=== PATIENT | female | born 1985 | race African-American/Black ===

== ENCOUNTER 2017-09-19 09:41 | Emergency (ER) | payer OTHER ==
--- NOTE | 2017-09-19 09:54 | PDOC ---
History of Present Illness - General Chief Complaint: Injury Stated Complaint: LEFT ANKLE PAIN Time Seen by Provider: 09/19/17 09:44 - History of Present Illness Initial Comments: 09/19/17 09:52 32 F with no PMH presents to ED with L ankle pain. Pt states that yesterday she twisted her ankle inward while going down a step. Denies falling. Denies hearing a pop or crack. Pt was able to ambulate on it immediately afterwards but with some pain. Pt denies any other injury. Has been ambulatory on the foot but states it hurts to bear weight. Pt reports prior fx in the same ankle several years ago. Past History - Past Medical History Allergies/Adverse Reactions: Allergies Allergy/AdvReac Type Severity Reaction Status Date / Time No Known Allergies Allergy Verified 09/19/17 09:43 Home Medications: Ambulatory Orders No Home Medications 0 dose .ROUTE UTDICT 07/05/12 - Suicide/Smoking/Psychosocial Hx Smoking Status: Yes Smoking History: Former smoker Years of Tobacco Use: 5 Number of Cigarettes Smoked Daily: 0 Hx Alcohol Use: No Drug/Substance Use Hx: No Substance Use Type: None Hx Substance Use Treatment: No Review of Systems - Review of Systems Comments:: 09/19/17 09:53 "GENERAL/CONSTITUTIONAL: No fever or chills. No weakness. HEAD, EYES, EARS, NOSE AND THROAT: No change in vision. No ear pain or discharge. No sore throat. CARDIOVASCULAR: No chest pain or shortness of breath. RESPIRATORY: No cough, wheezing, or hemoptysis. GASTROINTESTINAL: No nausea, vomiting, diarrhea or constipation. GENITOURINARY: No dysuria, frequency, or change in urination. MUSCULOSKELETAL: + L ankle swelling and pain. No neck or back pain. SKIN: No rash NEUROLOGIC: No headache, vertigo, loss of consciousness, or change in strength/ sensation. ENDOCRINE: No increased thirst. No abnormal weight change. HEMATOLOGIC/LYMPHATIC: No anemia, easy bleeding, or history of blood clots. ALLERGIC/IMMUNOLOGIC: No hives or skin allergy. " *Physical Exam - Physical Exam Comments: 09/19/17 09:54 "GENERAL: Awake, alert, and fully oriented, in no acute distress HEAD: No signs of trauma EYES: PERRLA, EOMI, sclera anicteric, conjunctiva clear ENT: Auricles normal inspection, hearing grossly normal, nares patent, oropharynx clear without exudates. Moist mucosa NECK: Nontender, no stepoffs, Normal ROM, supple, no lymphadenopathy, JVD, or masses LUNGS: Breath sounds equal, clear to auscultation bilaterally. No wheezes, and no crackles HEART: Regular rate and rhythm, normal S1 and S2, no murmurs, rubs or gallops ABDOMEN: Soft, nontender, normoactive bowel sounds. No guarding, no rebound. No masses EXTREMITIES: + L ankle effusion with mild TTP over lateral malleolus, normal ROM NEUROLOGICAL: Cranial nerves II through XII intact. 5/5 strength and sensation in all extremities, Normal speech, normal gait, normal cerebellar function SKIN: Warm, Dry, normal turgor, no rashes or lesions noted. " ED Treatment Course - RADIOLOGY Radiology Studies Ordered: Category Date Time Status ANKLE-LEFT [RAD] Stat Radiology 09/19/17 09:45 Ordered Medical Decision Making - Medical Decision Making 09/19/17 09:54 32 F with L ankle pain and swelling after twisting it yesterday. Likely ankle sprain - XR to r/o fx 09/19/17 10:42 XR negative Pt is well appearing, with normal vitals. Clinically stable for DC at this time. I discussed the physical exam findings, ancillary test results and final diagnoses with the patient. I answered all of the patient's questions. The patient was satisfied with the care received and felt comfortable with the discharge plan and treatment plan. The patient agrees to follow up with the primary care physician within 24-72 hours. *DC/Admit/Observation/Transfer Diagnosis at time of Disposition: Ankle sprain - Discharge Dispostion Disposition: HOME - Referrals Referrals: Joseph Thakur MD [Staff Physician] - - Patient Instructions Printed Discharge Instructions: DI for Ankle Sprain Additional Instructions: Apply ice and keep your ankle elevated to reduce swelling. Take motrin as needed for pain. Your X ray today did not show any fractures. However, if you continue to have pain and difficulty walking, you may have a torn ligament. Follow up with an orthopedic surgeon within 72 hours to have your ankle re- evaluated if you still have pain. You may need an MRI. Keep your ankle wrapped and avoid bearing weight on it. If you experience worsening pain, swelling, or any other concerning symptoms, return to the ER immediately. - Post Discharge Activity - Attestations Physician Attestion: 09/19/17 10:45 I, Dr. Lowell Barrientos MD, attest that this document has been prepared under my direction and personally reviewed by me in its entirety. I further attest, that it accurately reflects all work, treatment, procedures and medical decision -making performed by me.
[2017-09-19 09:57] VITALS: BP 119/78; PULSE 81; TEMP 98.2; BMI 26.6
== END 2017-09-19 10:51 | disposition home or self-care (01) ==
LOC: FER 09:41
DX: S93.402A Sprain of unspecified ligament of left ankle, initial encounter (principal); W18.39XA Other fall on same level, initial encounter; Y93.89 Activity, other specified; Y92.9 Unspecified place or not applicable; Z87.891 Personal history of nicotine dependence
CPT/HCPCS: 73610-TC-LT-FY; 99282-25

== ENCOUNTER 2021-04-19 07:07 | Emergency (ER) | payer OTHER ==
[2021-04-19 07:18] VITALS: BP 128/79; PULSE 65; TEMP 97.9; BMI 29.2
[2021-04-19] MEDS ORDERED: DIPHTH,PERTUSS(ACELL),TET 0.5 ML DISP.SYRIN IM ONE ×2 (07:25→07:32)
== END 2021-04-19 09:16 | disposition home or self-care (01) ==
LOC: FER 07:07
PROC: 0HQFXZZ Repair Right Hand Skin, External Approach (ICD-10-PCS; principal; 2021-04-19)
PROC: 3E0234Z Introduction of Serum, Toxoid and Vaccine into Muscle, Percutaneous Approach (ICD-10-PCS; 2021-04-19)
DX: S61.209A Unspecified open wound of unspecified finger without damage to nail, initial encounter (principal)
CPT/HCPCS: 12001-25; 73130-TC-RT-FY; 90471; 90715; 99284-25

== ENCOUNTER 2023-07-23 00:29 | Emergency (ER) | payer OTHER ==
[2023-07-23 00:36] VITALS: BP 121/86; PULSE 76; RESP 16; TEMP 99; BMI 29.7
== END 2023-07-23 00:51 | disposition home or self-care (01) ==
LOC: FER 00:29
DX: J06.9 Acute upper respiratory infection, unspecified (principal); R05.9 Cough, unspecified; R50.9 Fever, unspecified; B34.9 Viral infection, unspecified; M79.10 Myalgia, unspecified site; R53.81 Other malaise; Z20.822 Contact with and (suspected) exposure to COVID-19
CPT/HCPCS: 0241U-QW; 99283-25